=== PATIENT | female | born 1940 | race Caucasian/White ===

== ENCOUNTER 2017-02-24 06:26 | Day surgery (SDC) | payer MEDICARE, OTHER ==
--- NOTE | 2017-02-21 13:07 | PCM.ANEPRE ---
Anesthesia Pre-Op Review Reason for Review: Cardiac cath with stent placed within last 3 mos Anesthesia Recommendations: Proceed with Procedure Additional Comments 76 year-old female s/p BMS in late December with anticipated 4 weeks of DAPT and then discontinuation of DAPT and eligibility of urologic procedure. Cath report and plan reviewed from Dr. 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 Gallo Day MD February 21, 2017 13:07
[2017-02-24] VITALS (7 sets, daily range): BP systolic 109–152; BP diastolic 54–88; PULSE 69–78; RESP 13–16; O2SAT 93–97
[~2017-02-24] VITALS: Ht 162.6 cm; Wt 73.2 kg
[~2017-02-24 06:26] MED LIST: ALEN70TA2 PO; ASCO500C6 PO; ASPI-973 PO; CALC-72 PO; CHOL10008 PO; CLON1PAT14 TD; CLOP75TA28 PO; CeFAZolin Inj 2,000 MG in Dextrose 5% 50 ML IV SCH; DICL1ADH6 TD; ESOM40CA41 PO; IBUP100T47 PO; LIP40 PO; LOSA100T29 PO; Lactated Ringer's 1,000 ML IV SCH; METO100T3 PO; RANI150C4 PO; TROS20TA4 PO; [UNRECOGNIZED DRUG - CODE] PO
[2017-02-24] MEDS ORDERED: Ondansetron 2 mg/mL 2 mL Inj ONE (06:27)
[2017-02-24] MEDS ORDERED: Dexamethasone 4 mg/mL Inj ONE (06:27)
[2017-02-24] MEDS ORDERED: Propofol 10,000 mCg/mL 20 mL Inj ONE (06:27)
[2017-02-24] MEDS ORDERED: Lidocaine PF 1% 30 mL Inj ONE (06:27)
[2017-02-24] MEDS ORDERED: fentaNYL-PF 50 mCg/mL 2 mL Inj ONE (06:27)
[2017-02-24] MEDS ORDERED: Lactated Ringer's 1,000 ML IV ONE (06:59)
[2017-02-24] MEDS ORDERED: CeFAZolin Inj 2 gm / 50mL D5W IV ONE (07:20)
[2017-02-24] MEDS ORDERED: Belladonna Alk-Opium 60 mg Rectal Suppository RECTAL ONE ×2 (08:37→09:09)
--- NOTE | 2017-02-24 08:37 | PCM.HPANE ---
Patient Data Date of Service: February 24, 2017 Surgeon Admitting Provider: Attending Provider:Shari Palmer MD Primary Care Physician:Devyn Ennis MD Other Provider:Luis Cain Anesthesia Reason for Visit Nocturia Ht/WT & BMI Height (Feet): 5 Height (Inches): 4.00 Weight (Kilograms): 73.210 Body Mass Index 27.00 Allergies Coded Allergies: Sulfa (Sulfonamide Antibiotics) (Verified Allergy, Unknown, itching, ) amlodipine (Verified Allergy, Unknown, 02/21/17) Past Anesthesia History Anesthesia History: Denies:: Abnormal Airway Diabetes History Hx Diabetes?: No Medications Blood Thinner: Aspirin, Plavix Last Dose Blood Thinner: February 16, 2017 Hypertension Medication: Yes Home Meds Incl Beta Flora: Yes (metoprolol) Date Beta Flora Taken: February 24, 2017 Time Beta Flora Taken: 529 Reported Medications Clonidine HCl (Clonidine 0.1 mg/24 hr Tdrm Patch)1 Each Patch.tdwk1 Patch TD WEEKLY 30 Days Ref 0 02/21/17 Cholecalciferol (Vitamin D3) (Vitamin D3)1,000 Unit Tab.chew1,000 Unit PO DAILY 02/21/17 Ascorbic Acid (Vitamin C)500 Mg Capsule.er500 Mg PO DAILY 02/21/17 Ranitidine 150 Mg Qilraym999 Mg PO DAILY Ref 0 02/21/17 Esomeprazole Magnesium (Nexium)40 Mg Capsule.dr40 Mg PO DAILY Ref 0 02/21/17 Metoprolol Tartrate 100 Mg Cypdjd528 Mg PO DAILY 30 Days Ref 0 02/21/17 Losartan Potassium 100 Mg Tjfgcm751 Mg PO DAILY 02/21/17 Lactase (Lactaid)3,000 Unit Tablet3,000 Unit PO DAILY 02/21/17 Alendronate Sodium (Fosamax)70 Mg Zovcmy48 Mg PO WEEKLY 30 Days Ref 0 02/21/17 Diclofenac Epolamine (Flector)1 Each Patch.td121 Each TD DAILY PRN For Pain 02/21/17 Clopidogrel 75 Mg Nolkxg00 Mg PO DAILY Ref 0 02/21/17 Calcium Carbonate/Vitamin D3 (Calcium 500 + Vit D 200 Tablet)1 Each Tablet1 Each PO DAILY 02/21/17 Atorvastatin (Lipitor)40 Mg Sookdp60 Mg PO DAILY Ref 0 02/21/17 Aspirin 81 Mg Izitpr16 Mg PO DAILY Ref 0 02/21/17 Ibuprofen (Advil)100 Mg Hsgpgj862 Mg PO Q4H PRN For Pain 02/21/17 Discontinued Reported Medications Trospium Chloride 20 Mg Tryjdf92 Mg PO BID 02/21/17 History History of ENT Problems?: No HEENT History: Denies:: Abnormal Airway Denture Type: None Teeth Condition: Within Normal Limits Hx of Heart Problems?: Yes Cardiovascular History: Positive for:: Cardiac Surgery (CABG 2005, cardiac cath with BMS 12/2016) Hypertension Denies:: Valvular Heart Disease (ef 66% 2016) Other History/Comments Doing cardiac rehab, >4 mets Hx of Respiratory Problem?: No Respiratory History: Denies:: Oxygen Administration Use of C-PAP Machine Hx Neurologic Problems?: No Hx of GI Problems?: Yes Hx of Problems?: Yes Other Pertinent History: nocturia current admission problem Female Hx: Denies:: Currently (post menopausal) Hx Musculoskeletal Problems?: No Hx of Psycho/Social Problems?: Yes Psycho Social History: Positive for:: Hx Depression Hx Surgeries?: Yes (CABG) Hx Any Other Health Problems?: Yes Other History: Denies:: Cancer Thyroid Disease Hx Diabetes: No Stop/Bang S-Snoring: Do You Snore Loudly: No T-Tired: feel tired, fatigued: No O-Obsered: Observed not breath: No P-Blood Pressure: treated: Yes B- Body Mass Index > 35 kg/m2: No A- Age over 50: Yes N- Neck Large Circumference: No G- Gender Male: No SANDY Total Score: 2 SANDY Risk Assessment: Low Risk, <3 Yes Risk Assessment Category Category 1A: Patient has history of documented sleep apnea, and HAS NOT received any narcotic, sedative or anesthesia administration during this stay. Category 1B: Patient has history of documented sleep apnea, and HAS received any narcotic , sedative or anesthesia administration during this stay Category 2: Patient has SUSPECTED Obstructive Sleep Apnea, and HAS received any narcotic , sedative or anesthesia administration during this stay. Category 3: Patient has SUSPECTED Obstructive Sleep Apnea and HAS NOT received narcotic, sedative or anesthesia administration during this stay. Category 4: Outpatient in Procedural Areas with known sleep apnea or who screen positive for High Risk via the STOP/BANG questionnaire. Exam Exam General Appearance: Alert, Oriented X3, Cooperative, No Acute Distress HEENT/AIRWAY: MP 2 Lungs: Clear to Auscultation, Normal Air Movement Heart: Exam Unremarkable, Regular Rate/Rhythm, No Murmurs/Rubs/Gallops Meds/Labs/Diagnostics Admission Meds Current Medications Lactated Ringer's (Lr) 1,000 ml @ ud STK-MED ONCE IV Last administered on 02/24t 06:59; Start 02/24/17 at 06:59; Stop 02/24/17 at 07:00; Status DC Plan Impression Patient chart reviewed, patient interviewed and anesthestic plan with risks, benefits, and alternatives discussed, and informed consent obtained. NPO per Anesth. Guidelines: Yes ASA Physical Status: ASA3 Severe Disease Anesthetic Plan: GA Bene/Risks/Altern/Consents: Yes HP Complete Prior to Induction: Yes Rd Iverson MD February 24, 2017 08:37
[2017-02-24] MEDS ORDERED: Bupivacaine-MPF 0.5% 30 mL Inj INJ ONE (08:56)
[2017-02-24] MEDS ORDERED: Lidocaine Topical 2% 30 mL Jelly TOP ONE (09:07)
[2017-02-24] MEDS ORDERED: Lactated Ringer's 1,000 ML IV SCH (09:09)
[2017-02-24] MEDS ORDERED: Lactated Ringer's 500 ML IV PRN (09:09)
[2017-02-24] MEDS ORDERED: Ondansetron 2 mg/mL 2 mL Inj IVPUSH PRN (09:10)
[2017-02-24] MEDS ORDERED: hydrALAZINE 20 mg/mL Inj IVPUSH PRN (09:10)
[2017-02-24] MEDS ORDERED: HYDROmorphone 1 mg/mL Inj IVPUSH PRN (09:10)
[2017-02-24] MEDS ORDERED: Phenylephrine 10,000 mCg/mL Inj IVPUSH PRN (09:10)
[2017-02-24] MEDS ORDERED: fentaNYL-PF 50 mCg/mL 2 mL Inj IVPUSH PRN (09:10)
[2017-02-24] MEDS ORDERED: EPHEDrine Sulfate 50 mg/mL Inj IVPUSH PRN (09:10)
[2017-02-24] MEDS ORDERED: Labetalol 5 mg/mL 4 mL Inj IV PRN (09:10)
[2017-02-24] MEDS ORDERED: MetoCLOpramide 5 mg/mL 2 mL Inj IVPUSH PRN (09:10)
[2017-02-24] MEDS ORDERED: Atropine 0.4 mg/mL Inj IVPUSH PRN (09:10)
[2017-02-24] MEDS ORDERED: HYDROcodone-APAP 5-325 mg Tablet PO PRN (09:25)
--- NOTE | 2017-02-24 09:57 | OP ---
[address] [address] OPERATIVE REPORT PATIENT: VANNA GUTIÉRREZ : 1940 MR#: [id number] ADMIT: 02/24/2017 JOB ID: [id number] DATE OF SURGERY: 02/24/2017 SURGEON: Shari Palmer MD. PREOPERATIVE DIAGNOSIS(ES): 1. Interstitial cystitis. 2. Urethral stenosis. POSTOPERATIVE DIAGNOSIS(ES): 1. Interstitial cystitis. 2. Urethral stenosis. PROCEDURE: 1. Cystoscopy. 2. Hydrodistention. 3. Urethral dilation. ANESTHESIA: General anesthetic, Dr. . DESCRIPTION OF PROCEDURE: Under a general anesthetic, the patient was placed in lithotomy position. Genitalia prepped and draped in a sterile manner. A 25-Wallisian cystoscope was introduced through a snug urethra. Bladder itself was erythematous but otherwise unremarkable. Hydrodistention was commenced at a pressure of 60 cm of water and increased incrementally to 110 cm of water pressure. Maximum hydrodistention achieved 1300 cc which was held for 5 minutes. Upon release of distention, a marked petechial reaction was present throughout the bladder. The urethra was then dilated to 39-Wallisian with Carreon dilators. A mixture of Marcaine, Xylocaine, and Xylocaine jelly was then instilled into the bladder, and a B and O suppository was given for postoperative analgesia. The patient tolerated the procedure well. Left the operating room in good condition.
--- NOTE | 2017-02-24 10:18 | PCM.ANEP1 ---
Post Anesthesia Phase 1 PACU Phase 1 Assessment Date of Service: February 24, 2017 Vital Signs Vital Signs Date Time Temp Pulse Resp B/P Pulse Ox O2 Delivery O2 Flow Rate FiO2 02/24/17 09:58 77 16 146/77 93 Room Air 02/24/17 09:55 76 14 122/88 95 Room Air 02/24/17 09:40 75 14 118/78 96 Room Air 02/24/17 09:35 78 13 118/54 96 Room Air 02/24/17 09:30 69 13 109/63 97 Room Air 02/24/17 09:25 36.2 69 16 113/63 97 Room Air Anesthetic Administered: GA Level of Alertness: Sleeping, hard to arouse AMIN's with Equal Strength: Yes Pain: No Nausea or Vomiting: No Oxygen Delivery: Simple Mask Lungs: Clear to Auscultation, Normal Air Movement Complications: No Follow up Care: No Patient Instructions Provided: Yes Rd Iverson MD February 24, 2017 10:18
[2017-02-24] MEDS ORDERED: Belladonna Alk-Opium 60 mg Rectal Suppository RECTAL SCH (20:30)
== END 2017-02-24 23:59 | disposition home or self-care (01) ==
LOC: SAS 06:26
PROVIDERS: ATTEND Urology
DX: N30.10 Interstitial cystitis (chronic) without hematuria (principal); N35.9 Urethral stricture, unspecified; R35.1 Nocturia; I25.10 Atherosclerotic heart disease of native coronary artery without angina pectoris; I10 Essential (primary) hypertension; E78.5 Hyperlipidemia, unspecified; F32.9 Major depressive disorder, single episode, unspecified; Z95.5 Presence of coronary angioplasty implant and graft; Z79.02 Long term (current) use of antithrombotics/antiplatelets; Z79.82 Long term (current) use of aspirin; Z95.1 Presence of aortocoronary bypass graft
CPT/HCPCS: 52281; J0690; J1100; J2405; J3010; J7120